=== PATIENT | male | born 1960 | race American Indian/Alaskan Native ===

== ENCOUNTER 2016-12-26 13:23 | Emergency (ER) | payer MEDICAID ==
[2016-12-26] MEDS ORDERED: NACL 0.9% 500 ML IR ONE (15:05)
[2016-12-26] MEDS ORDERED: XYLOCAINE 2%/EPI 1:100,000 INFILTRATI ONE ×2 (15:07→15:22)
[2016-12-26] MEDS ORDERED: XYLOCAINE 2% INFILTRATI ONE (15:17)
[2016-12-26] MEDS ORDERED: BOOSTRIX IM ONE (15:33)
[2016-12-26] MEDS ORDERED: NACL 0.9% 1000 ML 1,000 ML IV ONE (15:34)
[2016-12-26] MEDS ORDERED: ZOFRAN IV ONE (15:35)
[2016-12-26] MEDS ORDERED: NACL 0.9% IR ONE (15:35)
[2016-12-26] MEDS ORDERED: XYLOCAINE 1% 20 mL INFILTRATI ONE (15:35)
--- NOTE | 2016-12-26 15:35 | Emergency Department Report ---
ED General Adult HPI - General Chief complaint: Wound/Laceration Stated complaint: 3 FINGERS LAC Time Seen by Provider: 12/26/16 15:09 Source: patient, family, RN notes reviewed Mode of arrival: Ambulatory Limitations: No Limitations - History of Present Illness Initial comments: This is a 56-year-old male. He is previously unknown to me. He is right-hand dominant. Has a past medical history of HIV. Does not know his CD4 count. Does not know his viral load. The patient works with [employer]. The patient presents to the ER with 3 finger lacerations after being cut by glass. Has a right pointer finger laceration, right fourth digit, and right middle finger laceration. Lacerations were sustained prior to arrival. There is no extremity weakness or numbness. Of note, while in the waiting room, patient had a vagal event, with the following events happening as per nursing documentation: After unwrapping and rewrapping wounds to assess injuries; pt c/o feeling lightheaded and dizzy . pt became diaphoretic across forehead . repeat blood pressure 61/37. informed pt to stay seated while getting wheelchair to take him to stretcher . pt got up ; fell to floor while vomiting. Glasses fell to floor / cut right upper eyebrow area . assisted pt out of floor and into wheelchair . pt taken to room 4 via wheelchair ; accompanied by spouse Patient reports that prior to arrival to the ER, he was feeling fine. While in the waiting room, he developed nausea and vomiting. -: Sudden Location: left, right, upper extremity Quality: aching Consistency: constant Improves with: rest Worsens with: movement Associated Symptoms: malaise, nausea/vomiting, syncope, weakness - Related Data Previous Rx's Medication Instructions Recorded Last Taken Type Bacitracin/Polymixin B [Polysporin] 1 applicatio TP TID #1 tube 12/26/16 Unknown Rx Ibuprofen [Motrin] 600 mg PO Q8H PRN #30 tablet 12/26/16 Unknown Rx Ondansetron [Zofran Odt] 4 mg PO QID PRN #20 tab.rapdis 12/26/16 Unknown Rx oxyCODONE [Roxicodone] 5 mg PO Q6HR PRN #15 tablet 12/26/16 Unknown Rx Allergies Allergy/AdvReac Type Severity Reaction Status Date / Time No Known Allergies Allergy Unverified 12/26/16 13:42 ED Review of Systems ROS: Stated complaint: 3 FINGERS LAC Other details as noted in HPI Constitutional: malaise. denies: fever Eyes: denies: vision change ENT: denies: epistaxis Respiratory: denies: cough Cardiovascular: syncope. denies: chest pain Gastrointestinal: nausea Genitourinary: as per HPI Musculoskeletal: arthralgia, myalgia Skin: lesions Neurological: weakness Psychiatric: anxiety ED Past Medical Hx - Past Medical History Hx HIV: Yes - Surgical History Past Surgical History?: No - Social History Smoking Status: Current Every Day Smoker Substance Use Type: Alcohol - Medications Home Medications: Home Medications Medication Instructions Recorded Confirmed Last Taken Type Bacitracin/Polymixin B [Polysporin] 1 applicatio TP TID #1 tube 12/26/16 Unknown Rx Ibuprofen [Motrin] 600 mg PO Q8H PRN #30 tablet 12/26/16 Unknown Rx Ondansetron [Zofran Odt] 4 mg PO QID PRN #20 tab.rapdis 12/26/16 Unknown Rx oxyCODONE [Roxicodone] 5 mg PO Q6HR PRN #15 tablet 12/26/16 Unknown Rx ED Physical Exam - General Limitations: Physical Limitation General appearance: alert, in no apparent distress - Head Head exam: Present: normocephalic, other (there is a right supraorbital abrasion /laceration) - Eye Eye exam: Present: normal appearance, PERRL, EOMI. Absent: nystagmus - ENT ENT exam: Present: normal exam, normal orophraynx, mucous membranes moist, TM's normal bilaterally, normal external ear exam - Neck Neck exam: Present: normal inspection, full ROM. Absent: tenderness, meningismus - Respiratory Respiratory exam: Present: normal lung sounds bilaterally. Absent: respiratory distress, wheezes, rales, rhonchi, stridor, decreased breath sounds - Cardiovascular Cardiovascular Exam: Present: regular rate, normal rhythm, normal heart sounds. Absent: bradycardia, tachycardia, irregular rhythm, systolic murmur, diastolic murmur, rubs, gallop - GI/Abdominal GI/Abdominal exam: Present: soft, tenderness, normal bowel sounds, other (there is left lower quadrant tenderness, there is no rebound, guarding or peritoneal signs). Absent: distended, guarding, rebound, rigid, pulsatile mass - Rectal Rectal exam: Present: deferred - Extremities Exam Extremities exam: Present: full ROM, tenderness, normal capillary refill, other (on the right pointer finger, there is a laceration on the dorsal aspect over the PCP joint. In the right upper extremity, thumb opposition is intact, FDP, FDS, extensors, lumbricals, intrinsics are intact. 2+ pulses noted in the upper extremities, compartments are soft, extensors are intact, and patient has good capillary refill in 5 digits. In the left upper extremity, FDP, FDS, extensors, opposition, lumbricals are all intact. There is no tendon dysfunction noted in the upper extremities. On the medial aspect of the fourth and third digits, there is a soft tissue defect consistent with laceration.). Absent: pedal edema, joint swelling, calf tenderness - Back Exam Back exam: Present: normal inspection, full ROM. Absent: tenderness, CVA tenderness (R), CVA tenderness (L), muscle spasm, paraspinal tenderness, vertebral tenderness - Neurological Exam Neurological exam: Present: alert, oriented X3, other (Extraocular movements intact. Tongue midline. No facial droop. Facial sensation intact to light touch in the V1, V2, V3 distribution bilaterally. 5 and 5 strength in 4 extremities.. Sensation is intact to light touch in 4 extremities.). Absent: motor sensory deficit - Psychiatric Psychiatric exam: Present: normal affect, normal mood - Skin Skin exam: Present: warm, other (right-sided supraorbital ecchymosis/laceration/ abrasion. Finger abrasions and lacerations as noted) ED Course Vital Signs 12/26/16 12/26/16 12/26/16 13:46 15:00 16:04 Temperature 98.3 F Pulse Rate 95 H 96 H 90 Respiratory 19 16 16 Rate Blood Pressure 107/76 Blood Pressure 115/77 134/93 [Left] O2 Sat by Pulse 96 100 100 Oximetry - Reevaluation(s) Reevaluation #1: 12/26/16 16:35 differential diagnosis: Vagal event, orthostatics, colitis, diverticulitis,, intracranial injury, multiple finger lacerations Assessment and plan: 56-year-old male with multiple finger lacerations from a piece of glass, physical exam in terms of his neurovascular status is unremarkable, and his tendons are also intact. Plain films do not demonstrate fracture, dislocation, foreign body. He will be given a tetanus vaccination, and the physician reading assistant will repair the finger lacerations. Patient had of what sounds like a vagal event while in the waiting room. He is afebrile now with reassuring vital signs, with a GCS of 15, and an NIH score of 0. He has a right-sided supraorbital abrasion and laceration. A noncontrast CT scan of the brain is ordered to exclude intracranial injury. He is incidentally found to have left lower quadrant tenderness on his examination, he states this was not part of his initial complaint, but it is noted incidentally in any way. Laboratory studies pending, urinalysis pending, CT scan of the abdomen and pelvis pending. Reevaluation #2: 12/26/16 18:22 lacerations were repaired by physician Asst. Escobar. CT scan of the brain and abdomen negative. patient has remained hemodynamically stable while here in the emergency department. Patient ambulating with a steady gait without difficulty. No chest pain. EKG abnormal, no prior for comparison. Patient will be discharged with antibiotic ointment, pain medication, instructions to follow up primary care. Return precautions are reviewed. left lower quadrant tenderness has resolved tolerating liquid feeds 12/26/16 18:43 12/26/16 18:44 Reevaluation #3: 12/26/16 18:47 Patient is discharged accompanied by an adult, who feels comfortable to assist in caring for the patient. ED Medical Decision Making - Lab Data Result diagrams: 12/26/16 16:06 12/26/16 16:06 Vital Signs 12/26/16 12/26/16 12/26/16 13:46 15:00 16:04 Temperature 98.3 F Pulse Rate 95 H 96 H 90 Respiratory 19 16 16 Rate Blood Pressure 107/76 Blood Pressure 115/77 134/93 [Left] O2 Sat by Pulse 96 100 100 Oximetry Lab Results 12/26/16 Range/Units 16:06 WBC 5.2 (4.5-11.0) K/mm3 RBC 4.58 (3.65-5.03) M/mm3 Hgb 14.1 (11.8-15.2) gm/dl Hct 41.6 (35.5-45.6) % MCV 91 (84-94) fl MCH 31 (28-32) pg MCHC 34 (32-34) % RDW 12.1 L (13.2-15.2) % Plt Count 139 L (140-440) K/mm3 - EKG Data 12/26/16 18:43 Normal sinus, 65 bpm, left axis deviation, poor R progression, borderline left ventricular hypertrophy, not consistent with STEMI. - Radiology Data Radiology results: report reviewed, image reviewed interpreted by me: X-ray of the chest negative. Bilateral hand x-ray negative for fracture and dislocation. Soft tissue defects are noted CT scan of the brain is negative. CT scan of the abdomen and pelvis shows constipation. Incidental adenopathy is noted. Adenopathy most likely secondary to underlying HIV status. Otherwise, CT scan of the abdomen and pelvis negative Critical care attestation.: If time is entered above; I have spent that time in minutes in the direct care of this critically ill patient, excluding procedure time. ED Disposition Clinical Impression: Multiple lacerations Disposition: DISCHARGED TO HOME OR SELFCARE Is pt being admited?: No Does the pt Need Aspirin: No Condition: Stable Instructions: Suture Care (ED), Laceration (ED), Syncope (ED) Additional Instructions: Take the antibiotic ointment as directed. Take the pain medication, nausea medication as needed/directed. If taking the oxycodone for pain, do not drive, consume alcohol, or make important decisions. Have the lacerations reevaluated by a medical professional within 48-72 hours. Facial sutures should come out within 5 days. Right hand sutures should come out within 5-7 days. EKG demonstrated nonspecific abnormalities. The should be followed up by his primary care doctor or seamless tube mill operator within the next [address] Ronn Hernandez is a local primary care doctor. Dr. Mason is a local engagement specialist. Return to the ER right away with new pain, worsened pain, migration of pain, fevers or chills, intractable nausea or vomiting, inability to tolerate liquid feeds. Starting tomorrow, wash the laceration sites with gentle soap and water every 8-12 hours. Keep dry otherwise, and apply bacitracin as directed. Prescriptions: Bacitracin/Polymixin B [Polysporin] 1 applicatio TP TID #1 tube Ibuprofen [Motrin] 600 mg PO Q8H PRN #30 tablet PRN Reason: Pain Ondansetron [Zofran Odt] 4 mg PO QID PRN #20 tab.rapdis PRN Reason: Nausea oxyCODONE [Roxicodone] 5 mg PO Q6HR PRN #15 tablet PRN Reason: Pain Referrals: PRIMARY CARE,MD [Primary Care Provider] - 3-5 Days RONN HERNANDEZ MD [Staff Physician] - 3-5 Days
[2016-12-26] MEDS ORDERED: MORPHINE ONE (15:40)
[2016-12-26] MEDS ORDERED: XYLOCAINE 1%/ EPI 1:100,000 INFILTRATI NR (16:00)
--- NOTE | 2016-12-26 16:03 | XRay Report ---
Bilateral hand: History: Hand laceration. Findings: No articular abnormality or fracture or dislocation. Soft tissue laceration is noted distal phalanx fourth finger left hand. No periosteal reaction or lytic lesion. Impression: No acute fracture or periosteal reaction.
--- NOTE | 2016-12-26 16:04 | XRay Report ---
Single view chest: History: Syncope. Findings: Normal cardiomediastinal silhouette. Trachea is midline. No consolidation, pneumothorax or pleural effusion. Impression: No acute cardiopulmonary findings.
[2016-12-26] MEDS ORDERED: MORPHINE IV ONE (16:12)
[2016-12-26 16:23] LABS: Hematocrit 41.6 % (35.5-45.6); Hemoglobin 14.1 gm/dl (11.8-15.2); Mean Corpuscular HGB Conc 34 % (32-34); Mean Corpuscular Hemoglobin 31 pg (28-32); Mean Corpuscular Volume 91 fl (84-94); Platelet Count 139 K/mm3 (140-440); Red Blood Count 4.58 M/mm3 (3.65-5.03); Red Cell Distribution Width 12.1 % (13.2-15.2); White Blood Count 5.2 K/mm3 (4.5-11.0)
--- NOTE | 2016-12-26 16:32 | Cat Scan Report ---
CT scan of head without contrast: History: Dizziness. Findings: Ventricles are normal in size and midline in location. No evidence of acute ischemia, hemorrhage or mass. No extra-axial fluid collection. Normal brainstem and cerebellum. Normal sinuses and mastoid air cells. Impression: No acute intracranial abnormality.
[2016-12-26 16:37] LABS: BUN/Creatinine Ratio 13.84; Blood Urea Nitrogen 18 mg/dL (9-20); Calcium 9.2 mg/dL (8.4-10.2); Carbon Dioxide 22 mmol/L (22-30); Chloride 99.1 mmol/L (98-107); Glucose 88 mg/dL (75-100); Magnesium 1.9 mg/dL (1.7-2.3); Sodium 134 mmol/L (137-145)
[2016-12-26 16:39] LABS: Alanine Aminotransferase 54 units/L (7-56); Albumin 3.9 g/dL (3.9-5); Alkaline Phosphatase 87 units/L (35-129); Anion Gap 18 mmol/L; Bilirubin,Total 0.9 mg/dL (0.1-1.2); Lipase 36 units/L (13-60); Potassium 4.8 mmol/L (3.6-5.0); Total Protein 7.9 g/dL (6.3-8.2)
--- NOTE | 2016-12-26 16:41 | Cat Scan Report ---
CT scan of abdomen and pelvis without IV contrast: History: Left lower quadrant pain nausea and vomiting. Findings: The right lung cyst/bronchiectasis. No pleural or pericardial effusion. Normal liver and pancreas. Patient status post cholecystectomy. Calcified granuloma spleen. Normal adrenals and kidney parenchyma and bladder. No free intraperitoneal fluid or air. Atherosclerotic calcified abdominal aorta without aneurysm. Small mesenteric and periaortic lymph nodes are noted. Lymph nodes are also identified in the pelvis. Normal appendix. No evidence of diverticulitis. Gaseous colon with moderate volume stool in colon. Impression: Mesenteric, retroperitoneal and pelvic nodes. Calcified granuloma spleen.
[2016-12-26 16:43] LABS: Bilirubin,Direct < 0.2 mg/dL (0-0.2); Bilirubin,Indirect 0.7 mg/dL
[2016-12-26] MEDS ORDERED: TORADOL IV ONE (17:10)
[2016-12-26 17:11] LABS: Bilirubin,Urine NEG (Negative); Blood,Urine NEG (Negative); Ketones,Urine NEG (Negative); Leukocyte Esterase,Urine NEG (Negative); Nitrite,Urine NEG (Negative); Protein,Urine <15 mg/dL mg/dL (Negative); RBC,Urine < 1.0 /HPF (0.0-6.0); WBC,Urine < 1.0 /HPF (0.0-6.0)
[2016-12-26] MEDS ORDERED: BACITRACIN (ED) OINT PACKET TP ONE (18:21)
--- NOTE | 2016-12-26 18:21 | Emergency Department Report ---
Blank Doc - Documentation Documentation: Procedure note: Multiple lacerations to face and left 3rd and 4th fingertips Attending: Dr. Tan Patient syncopized in triage, hit head on ground, sustained laceration of right brow. Patient lacerated left distal middle and ring finger now handling broken glass at home/work. Areas of lacerations infiltrated with 1% lidocaine, epinephrine used in right brow lack. No epinephrine used and finger lacerations only lidocaine. Total volume of anesthesia approximately 8 mL. All areas anesthetized until good local anesthesia was achieved. Hand and fingers cleaned with 1000 mL of saline mixed with iodoform in [place] solution for 5 minutes. I cleaned right upper brow with saline gauze and saline flushes and iodoform sponge. 2 Prolene 4-0 sutures placed in right brow region. Tolerated well with minimal bleeding. Triple antibiotic ointment and Band-Aid placed over area after sutures placed. 3 Prolene 4-0 sutures placed in left distal middle finger on lateral aspect of distal finger past the distal interphalangeal joint. Good capillary refill in this distal finger area less than one second. Good distal sensation clinical exam. Range of motion of motion DIP and PIP and MCP fully intact against resistance with flexion and extension intact. 9 Prolene 4-0 suture placed in large stellate near nearly fully avulsed skin on distal left ring fingertip. close approximation acheived with suture placement. Distal capillary refill less than 1 second in his fingertip. Good distal sensation clinical exam. Range of motion of motion DIP and PIP and MCP fully intact against resistance with flexion and extension intact. Total of 14 sutures placed. Overall procedure tolerated well minimal bleeding. Fingertips covered with triple antibiotic ointment small amount of Roll-on gauze and finger splints placed by nurse. Facial sutures to be removed in 7 days. Fingertips sutures will require at least 7-[address] Tan notified of completion of laceration repair.
[2016-12-26 18:54] VITALS: BP 129/69
[2016-12-26] MEDS ORDERED: ANTIBIOTIC OINT TP ONE (19:00)
== END 2016-12-26 19:21 | disposition home or self-care (01) ==
LOC: ED 13:23
DX: S01.111A Laceration without foreign body of right eyelid and periocular area, initial encounter (principal); S61.214A Laceration without foreign body of right ring finger without damage to nail, initial encounter; S61.212A Laceration without foreign body of right middle finger without damage to nail, initial encounter; F17.200 Nicotine dependence, unspecified, uncomplicated; W25.XXXA Contact with sharp glass, initial encounter; Y93.89 Activity, other specified; Y99.9 Unspecified external cause status; Y92.89 Other specified places as the place of occurrence of the external cause
CPT/HCPCS: 12002; 12011; 36415; 70450; 71010; 73120; 74176; 80048; 80074; 81001; 83690; 83735; 85027; 90471; 90715; 93005; 93010; 96361; 96374; 96375; 99285; J1885; J2270; J2405; J7030

== ENCOUNTER 2017-01-01 09:29 | Emergency (ER) | payer MEDICAID ==
[2017-01-01 09:36] VITALS: BP 118/78
--- NOTE | 2017-01-01 10:11 | Emergency Department Report ---
ED Recheck HPI - General Chief Complaint: Laceration/Recheck/Suture Stated Complaint: SUTURE REMOVAL Time Seen by Provider: 01/01/17 10:05 Source: patient Mode of arrival: Ambulatory Limitations: No Limitations - History of Present Illness Initial Comments: Patient had stitches placed to fingers of left finger placed on 12/26/2016. He also had stitches to his left eyebrow. She was placed on ibuprofen and bacitracin along with oxycodone and Zofran. He denies any redness, drainage or fever. He said he still has pain with movement of his finger 4-10 and medication is working for him. She has HIV status he wasn't placed on any oral aantibiotic but was given prescription bacitracin which he said he's been applying to areas n post laceration repair. Patient said that he is not on any HIV medication and his viral load was undetectable. Complaint: wound re-check Onset/Timin -: days(s) Initial Visit For: laceration Returns Today for: staple/Stitch removal, wound recheck Symptoms Since Prior Visit: no new symptoms, improved Context: planned re-check Associated Symptoms: none. denies: fever, chills, chest pain, shortness of breath, rash, malaise, nasuea, abdominal pain Treatments Prior to Arrival: other medications (nausea medication), Given Pain Meds on - Related Data Previous Rx's Medication Instructions Recorded Last Taken Type Bacitracin/Polymixin B [Polysporin] 1 applicatio TP TID #1 tube 12/26/16 Unknown Rx Ibuprofen [Motrin] 600 mg PO Q8H PRN #30 tablet 12/26/16 Unknown Rx Ondansetron [Zofran Odt] 4 mg PO QID PRN #20 tab.rapdis 12/26/16 Unknown Rx oxyCODONE [Roxicodone] 5 mg PO Q6HR PRN #15 tablet 12/26/16 Unknown Rx Allergies Allergy/AdvReac Type Severity Reaction Status Date / Time No Known Allergies Allergy Unverified 12/26/16 13:42 ED Review of Systems ROS: Stated complaint: SUTURE REMOVAL Other details as noted in HPI Comment: All other systems reviewed and negative Constitutional: denies: chills, fever Respiratory: no symptoms reported Cardiovascular: denies: chest pain, palpitations, edema, syncope Gastrointestinal: denies: abdominal pain, nausea, vomiting Skin: other (laceration to finger is on the left hand third and fourth digits at the distal phalanx. Laceration to left brow) Neurological: denies: headache, numbness, paresthesias, confusion ED Past Medical Hx - Past Medical History Previous Medical History?: Yes Hx Hypertension: Yes Hx HIV: Yes - Surgical History Past Surgical History?: No - Family History Family history: no significant - Social History Smoking Status: Current Every Day Smoker Substance Use Type: Alcohol, Prescribed - Medications Home Medications: Home Medications Medication Instructions Recorded Confirmed Last Taken Type Bacitracin/Polymixin B [Polysporin] 1 applicatio TP TID #1 tube 12/26/16 Unknown Rx Ibuprofen [Motrin] 600 mg PO Q8H PRN #30 tablet 12/26/16 Unknown Rx Ondansetron [Zofran Odt] 4 mg PO QID PRN #20 tab.rapdis 12/26/16 Unknown Rx oxyCODONE [Roxicodone] 5 mg PO Q6HR PRN #15 tablet 12/26/16 Unknown Rx ED Physical Exam - General Limitations: No Limitations General appearance: alert, in no apparent distress - Head Head exam: Present: atraumatic, normocephalic, normal inspection - Eye Eye exam: Present: normal appearance, PERRL, EOMI Pupils: Present: normal accommodation - ENT ENT exam: Present: normal exam, mucous membranes moist - Neck Neck exam: Present: normal inspection. Absent: tenderness, lymphadenopathy - Respiratory Respiratory exam: Present: normal lung sounds bilaterally. Absent: respiratory distress, chest wall tenderness - Cardiovascular Cardiovascular Exam: Present: regular rate, normal rhythm, normal heart sounds - Extremities Exam Extremities exam: Present: normal inspection, full ROM, tenderness (tender to palpate to left distal phalanx third and fourth finger), normal capillary refill , other (capillary refill less than 3 seconds. Left hand without any pain or swelling. Left hand without any redness and pulses are 2+. Signs of neurovascular compromise. Patient with full range of motion to all fingers of left hand). Absent: pedal edema, joint swelling, calf tenderness - Back Exam Back exam: Present: normal inspection, full ROM - Neurological Exam Neurological exam: Present: alert, oriented X3, normal gait, reflexes normal. Absent: motor sensory deficit - Psychiatric Psychiatric exam: Present: normal affect, normal mood - Skin Skin exam: Present: warm, dry, intact. Absent: erythema - Expanded Skin Exam Expanded Type of lesion: Present: laceration (with stitches. To left third and fourth digits and left eyebrow) ED Course Vital Signs 01/01/17 09:33 Temperature 97.7 F Pulse Rate 80 Respiratory 18 Rate Blood Pressure 118/78 O2 Sat by Pulse 99 Oximetry - Reevaluation(s) Reevaluation #1: 01/01/17 10:17 Stitches removed from left third and fourth distal phalanx and left eyebrow. Patient tolerated it well. 3 sutures removed from distal phalanx left third finger and 5 removed from distal phalanx left fourth finger of left hand. 2 sutures removed from left eyebrow. Laceration site looks good and no signs of infection. ED Recheck MDM - Differential Diagnosis Wound Recheck, Suture/Staple Removal - Medical Decision Making ED course:Stitches removed from left third and fourth distal phalanx and left eyebrow. Patient tolerated it well. 3 sutures removed from distal phalanx left third finger and 5 removed from distal phalanx left fourth finger of left hand. 2 sutures removed from left eyebrow. Laceration site looks good and no signs of infection. Patient instructed to return to the emergency room or his primary care physician if he develop redness, swelling or drainage inside. He voiced understanding of diagnosis and treatment plan and discharged home to continue with bacitracin ointment. Critical care attestation.: If time is entered above; I have spent that time in minutes in the direct care of this critically ill patient, excluding procedure time. ED Disposition Clinical Impression: Visit for suture removal Disposition: DISCHARGED TO HOME OR SELFCARE Is pt being admited?: No Does the pt Need Aspirin: No Condition: Stable Instructions: Laceration (ED), Suture Removal (ED) Additional Instructions: keep affected area clean and dry Primary care physician in 2-3 days. Referrals: PRIMARY CARE,MD [Primary Care Provider] - 2-3 Days
== END 2017-01-01 10:31 | disposition home or self-care (01) ==
LOC: ED 09:29
DX: Z48.02 Encounter for removal of sutures (principal); I10 Essential (primary) hypertension; F17.200 Nicotine dependence, unspecified, uncomplicated

== ENCOUNTER 2017-03-20 17:05 | Emergency (ER) | payer MEDICAID ==
[2017-03-20 17:23] VITALS: BP 141/96
[2017-03-20] MEDS ORDERED: XYLOCAINE 1% 20 mL INFILTRATI ONE (17:40)
--- NOTE | 2017-03-20 18:36 | Emergency Department Report ---
Upper Extremity - [facility] Chief Complaint: Extremity Injury, Upper Stated Complaint: LAC TO FINGER Time Seen by Provider: 03/20/17 17:36 Upper Extremity: Left Middle Finger Occurred When: Today Symptoms: Yes Pain with Movement, Yes Limited Range of Movement, Yes Swelling, Yes Laceration or Abrasion, No Deformity, No Numbness, No Weakness Other History: Patient comes into the ER today with complaints of a finger laceration after he states that he was working on a window when the glass fell down and cut his finger. Patient states that he done a similar injury a couple months ago and was seen here and he thinks he got a tetanus shot at that time. Patient also having complaints of chronic cough and throat discomfort for the past 2-3 months. Patient states that he saw his doctor and was told that it may be allergies and was given Claritin without any relief in his cough. Patient denies any fever, hemoptysis, night sweats. ED Review of Systems ROS: Stated complaint: LAC TO FINGER Other details as noted in HPI Constitutional: denies: chills, fever Eyes: denies: eye pain, eye discharge, vision change ENT: throat pain, congestion. denies: ear pain Respiratory: cough. denies: shortness of breath, wheezing Cardiovascular: denies: chest pain, palpitations Endocrine: no symptoms reported Gastrointestinal: denies: abdominal pain, nausea, diarrhea Genitourinary: denies: urgency, dysuria Musculoskeletal: denies: back pain, joint swelling, arthralgia Skin: denies: rash, lesions Neurological: denies: headache, weakness, numbness, paresthesias Psychiatric: denies: anxiety, depression Hematological/Lymphatic: denies: easy bleeding, easy bruising ED Past Medical Hx - Past Medical History Previous Medical History?: Yes Hx Hypertension: Yes Hx HIV: Yes - Surgical History Past Surgical History?: No - Social History Smoking Status: Current Every Day Smoker Substance Use Type: Alcohol, Marijuana, Prescribed - Medications Home Medications: Home Medications Medication Instructions Recorded Confirmed Last Taken Type Bacitracin/Polymixin B [Polysporin] 1 applicatio TP TID #1 tube 12/26/16 Unknown Rx Ibuprofen [Motrin] 600 mg PO Q8H PRN #30 tablet 12/26/16 Unknown Rx Ondansetron [Zofran Odt] 4 mg PO QID PRN #20 tab.rapdis 12/26/16 Unknown Rx oxyCODONE [Roxicodone] 5 mg PO Q6HR PRN #15 tablet 12/26/16 Unknown Rx Amoxicillin/K Clav Tab [Augmentin 1 tab PO Q12HR #20 tab 03/20/17 Unknown Rx 875 mg] Upper Extremity Exam - Exam General: Vital signs noted. No distress. Alert and acting appropriately. Head and Torso: Yes HEENT Abnormality (bilateral nasal mucosa redness and turbinate swelling, posterior pharynx erythematous and postnasal drainage noted. ), No Neck Tenderness, No Chest/Lungs Abnormality, No Abdominal Tenderness, No Back Tenderness Shoulder Exam: Yes Normal Range of Motion in Shoulder, No Shoulder Tenderness, No Clavicle Tenderness, No Shoulder Deformity, No AC Joint Tenderness Arm Exam: No Arm/Humerus Tenderness, No Arm Deformity Elbow: No Elbow Tenderness, No Normal Range of Motion in Elbow, No Elbow Deformity Forearm: No Forearm Tenderness, No Forearm Deformity, No Pain with Pronation, No Pain with Supination Wrist: Yes Normal ROM in Wrist, No Wrist Tenderness, No Wrist Deformity, No Snuffbox Tenderness, No Pain with Axial Thumb Compression Hand: Yes Digit Tenderness (left third posterior finger), Yes Normal ROM in Digit(s), Yes Digit(s) Deformity (laceration noted to left posterior third finger at PIP joint. Laceration is subcutaneous in curvilinear curve fashion. Laceration does appear to involve partial injury to the flexor tendon. No foreign bodies noted.), No Hand Tenderness, No Hand Deformity, No Tendon Dysfunction CMS Exam: Yes Broken Skin (laceration to left third posterior finger at PIP joint as described above under hand examination.), Yes Normal Distal Pulses, Yes Normal Capillary Refill, Yes Normal Distal Sensation ED Course Vital Signs 03/20/17 17:20 Temperature 98.6 F Pulse Rate 100 H Respiratory 16 Rate Blood Pressure 141/96 O2 Sat by Pulse 96 Oximetry - Laceration /Wound Repair Left Posterior Finger Wound Location: upper extremity (left posterior third PIP joint of the left hand ) Wound Length (cm): 3 Wound's Depth, Shape: linear, flap Wound Explored: clean Irrigated w/ Saline (ccs): 45 Betadine Prep?: Yes Anesthesia: 1% Lidocaine Volume Anesthetic (ccs): 3 Wound Repaired With: sutures Suture Size/Type: 3:0, nylon Number of Sutures: 7 Layer Closure?: No Sterile Dressing Applied?: Yes Progress: Patient tolerated procedure very well without any complications. After wound closure, patient dressed in sterile dressing and placed in aluminum foam finger splint to limit range of motion. I will refer patient to orthopedic for further evaluation of hand injury since it appears that there is some tendon involvement as well. ED Medical Decision Making - Medical Decision Making Patient is nontoxic and hemodynamically stable. I informed patient that since there is tendon involvement that I will refer him to orthopedic for further evaluation. Patient's tetanus was updated on his last visit for sutures. Patient does have additional physical exam consistent with sinus infection. Since patient has had postnasal drainage and cough for 3 months, and patient is HIV patient, I'll start patient on antibiotics accordingly for such. I will also refer patient to ENT for further evaluation of his chronic cough. Patient is in agreement with treatment plan and patient is stable for discharge. Critical care attestation.: If time is entered above; I have spent that time in minutes in the direct care of this critically ill patient, excluding procedure time. ED Disposition Clinical Impression: Laceration of finger of left hand, Chronic cough, Sinusitis Disposition: DC-01 TO HOME OR SELFCARE Is pt being admited?: No Does the pt Need Aspirin: No Condition: Good Instructions: Finger Laceration (ED), Sinusitis (ED) Prescriptions: Amoxicillin/K Clav Tab [Augmentin 875 mg] 1 tab PO Q12HR #20 tab Referrals: PRIMARY CAREMD [Primary Care Provider] - 3-5 Days MADHU AGOSTO MD [Staff Physician] - 3-5 Days [facility] [Provider Group] - 3-5 Days [facility], emergency Department [Other] - 04/03/17 (For suture removal) Time of Disposition: 18:57
== END 2017-03-20 19:02 | disposition home or self-care (01) ==
LOC: ED 17:05
DX: S61.213A Laceration without foreign body of left middle finger without damage to nail, initial encounter (principal); J32.9 Chronic sinusitis, unspecified; I10 Essential (primary) hypertension; F17.210 Nicotine dependence, cigarettes, uncomplicated; F12.10 Cannabis abuse, uncomplicated; W25.XXXA Contact with sharp glass, initial encounter; Y93.89 Activity, other specified; Y92.89 Other specified places as the place of occurrence of the external cause; Y99.8 Other external cause status
CPT/HCPCS: 99282

== ENCOUNTER 2017-04-03 11:00 | Emergency (ER) | payer MEDICAID ==
[2017-04-03 11:31] VITALS: BP 111/83
--- NOTE | 2017-04-03 11:40 | Emergency Department Report ---
Chief Complaint: Laceration/Recheck/Suture Stated Complaint: STITCHES REMOVED Time Seen by Provider: 04/03/17 11:38 - HPI History of Present Illness: he is HIV positive patient on medication presents for suture removal Patient also complains of what, productive cough for the past 2 months. He denies fevers/chills/nausea/vomiting/shortness of breath/chest pain or any other problems. - ROS Review of Systems: As noted in HPI - Exam Vital Signs: Vital Signs 04/03/17 11:27 Temperature 98.1 F Pulse Rate 76 Respiratory 20 Rate Blood Pressure 111/83 O2 Sat by Pulse 98 Oximetry Physical Exam: General: Patient is alert and oriented 3 he is in no acute distress Lungs: No wheezing, adventitious lung sounds bilaterally. Skin: Five t- 6 stitches to left third digit finger MSE screening note: Focused history and physical exam performed. Due to findings the following was ordered: ED Medical Decision Making - Medical Decision Making Chest x-ray ordered. Patient will need Bactrim antibiotics for prophylaxis prior to discharge. ED Disposition for MSE Condition: Stable
--- NOTE | 2017-04-03 12:34 | Emergency Department Report ---
Suture/Staple Removal - [facility] Chief Complaint: Laceration/Recheck/Suture Stated Complaint: STITCHES REMOVED Time Seen by Provider: 04/03/17 11:38 When Sutures or Caspian Placed: 8-10 Days Ago Wound Location: third digit finger ED Review of Systems ROS: Stated complaint: STITCHES REMOVED Other details as noted in HPI Constitutional: denies: chills, fever Eyes: denies: eye pain, eye discharge, vision change ENT: denies: ear pain, throat pain Respiratory: denies: cough, shortness of breath, wheezing Cardiovascular: denies: chest pain, palpitations Endocrine: no symptoms reported Gastrointestinal: denies: abdominal pain, nausea, diarrhea Genitourinary: denies: urgency, dysuria Musculoskeletal: denies: back pain, joint swelling, arthralgia Skin: denies: rash, lesions Neurological: denies: headache, weakness, paresthesias Psychiatric: denies: anxiety, depression Hematological/Lymphatic: denies: easy bleeding, easy bruising ED Past Medical Hx - Past Medical History Previous Medical History?: Yes Hx Hypertension: Yes Hx HIV: Yes - Surgical History Past Surgical History?: No - Social History Smoking Status: Unknown if ever smoked - Medications Home Medications: Home Medications Medication Instructions Recorded Confirmed Last Taken Type Bacitracin/Polymixin B [Polysporin] 1 applicatio TP TID #1 tube 12/26/16 Unknown Rx Ondansetron [Zofran Odt] 4 mg PO QID PRN #20 tab.rapdis 12/26/16 Unknown Rx oxyCODONE [Roxicodone] 5 mg PO Q6HR PRN #15 tablet 12/26/16 Unknown Rx Amoxicillin/K Clav Tab [Augmentin 1 tab PO Q12HR #20 tab 03/20/17 Unknown Rx 875 mg] Benzonatate [Tessalon Perles] 100 mg PO Q8HR #20 capsule 04/03/17 Unknown Rx Ibuprofen [Motrin 600 MG tab] 600 mg PO Q8H PRN #30 tablet 04/03/17 Unknown Rx Sulfamethoxazole/Trimethoprim 1 each PO BID #20 tablet 04/03/17 Unknown Rx [Bactrim DS TAB] Suture Removal Exam - Exam General: Vital signs noted. No distress. Alert and acting appropriately. Wound: No Pathologic Erythema, No Tenderness, No Drainage, No Pus, No Wound Dehiscence Other Systems: All other systems reviewed and are unremarkable. ED Course Vital Signs 04/03/17 11:27 Temperature 98.1 F Pulse Rate 76 Respiratory 20 Rate Blood Pressure 111/83 O2 Sat by Pulse 98 Oximetry ED Recheck MDM - Medical Decision Making 56-year-old male presents for suture removal and upper respiratory infection ED course: Discussed the patient to follow up with primary care physician. 7 stitches removed from the left third digit anterior finger. No complications patient tolerated procedure well Discussed his symptoms persist or worsen to return to ED. Vital signs are normal patient is no acute distress. Patient is oriented 3 understands instructions given. Critical care attestation.: If time is entered above; I have spent that time in minutes in the direct care of this critically ill patient, excluding procedure time. ED Disposition Clinical Impression: Visit for suture removal URI (upper respiratory infection) Qualifiers: URI type: unspecified URI Qualified Code(s): J06.9 - Acute upper respiratory infection, unspecified Disposition: DC- TO HOME OR SELFCARE Is pt being admited?: No Does the pt Need Aspirin: No Condition: Stable Instructions: Acute Wound Care (ED), Upper Respiratory Infection (ED) Additional Instructions: Follow-up with her primary care physician. Prescriptions: Benzonatate [Tessalon Perles] 100 mg PO Q8HR #20 capsule Ibuprofen [Motrin 600 MG tab] 600 mg PO Q8H PRN #30 tablet PRN Reason: Pain Sulfamethoxazole/Trimethoprim [Bactrim DS TAB] 1 each PO BID #20 tablet Referrals: MATTHEW DOBBS MD [Referring] - 3-[address] [facility] [Outside] - 3-5 Days [facility] [Outside] - 3-5 Days Forms: Work/School Release Form(ED) Time of Disposition: 12:29
== END 2017-04-03 12:35 | disposition home or self-care (01) ==
LOC: ED 11:00
DX: J06.9 Acute upper respiratory infection, unspecified (principal); S61.213D Laceration without foreign body of left middle finger without damage to nail, subsequent encounter; I10 Essential (primary) hypertension; W45.8XXD Other foreign body or object entering through skin, subsequent encounter
CPT/HCPCS: 99282

== ENCOUNTER 2017-04-11 11:36 | Emergency (ER) | payer MEDICAID ==
[2017-04-11 12:55] LABS: Eosinophils % (Auto) 1.4 % (0.0-4.3); Hematocrit 41.1 % (35.5-45.6); Hemoglobin 14.4 gm/dl (11.8-15.2); Mean Corpuscular HGB Conc 35 % (32-34); Mean Corpuscular Hemoglobin 33 pg (28-32); Mean Corpuscular Volume 95 fl (84-94); Platelet Count 228 K/mm3 (140-440); Red Blood Count 4.32 M/mm3 (3.65-5.03); Red Cell Distribution Width 12.8 % (13.2-15.2); White Blood Count 5.7 K/mm3 (4.5-11.0)
--- NOTE | 2017-04-11 13:28 | XRay Report ---
ROUTINE CHEST, TWO VIEWS: HISTORY: Shortness of breath. The trachea, heart, mediastinal contour, lung block and bony thorax are unremarkable. IMPRESSION: Unremarkable chest x-ray.
[2017-04-11 13:38] LABS: Anion Gap 20 mmol/L; BUN/Creatinine Ratio 15.83; Blood Urea Nitrogen 19 mg/dL (9-20); Calcium 9.6 mg/dL (8.4-10.2); Carbon Dioxide 21 mmol/L (22-30); Chloride 102.1 mmol/L (98-107); Glucose 110 mg/dL (75-100); Potassium 4.4 mmol/L (3.6-5.0); Sodium 139 mmol/L (137-145)
[2017-04-11 18:26] VITALS: BP 122/98
--- NOTE | 2017-04-11 19:29 | Emergency Department Report ---
HPI - General Chief Complaint: Upper Respiratory Infection Time Seen by Provider: 04/11/17 19:17 - HPI HPI: She here report that he has cough and wheezing for 3 months. He was here in 07/2017 and was given Tessalon Perles and Bactrim DS. He was also here on 03/20 and was given Augmentin. Patient's reported hoarseness, drainage in the back of his throat, cough and it's worse at night. Denies any fever or chills. Denies coughing up blood. Denies night sweats. Patient states that he has a history of HIV and he's been followed by HIV doctor he's been positive for 34 years and his lab values were normal. Denies any shortness of breath or chest pain. Denies any drooling in. He reports he is having sore throat from coughing. Pain is 10 out of 10 to throat and feel achy. He said he is tried ibuprofen and Tessalon Perles but it's not helping. Patient also report wheezing. ED Past Medical Hx - Past Medical History Previous Medical History?: Yes Hx Hypertension: Yes Hx HIV: Yes - Surgical History Past Surgical History?: No - Family History Family history: hypertension - Social History Smoking Status: Former Smoker Substance Use Type: Alcohol, Non Opiate Pain, Prescribed, Other - Medications Home Medications: Home Medications Medication Instructions Recorded Confirmed Last Taken Type Bacitracin/Polymixin B [Polysporin] 1 applicatio TP TID #1 tube 12/26/16 Unknown Rx Ondansetron [Zofran Odt] 4 mg PO QID PRN #20 tab.rapdis 12/26/16 Unknown Rx oxyCODONE [Roxicodone] 5 mg PO Q6HR PRN #15 tablet 12/26/16 Unknown Rx Amoxicillin/K Clav Tab [Augmentin 1 tab PO Q12HR #20 tab 03/20/17 Unknown Rx 875 mg] Benzonatate [Tessalon Perles] 100 mg PO Q8HR #20 capsule 04/03/17 Unknown Rx Ibuprofen [Motrin 600 MG tab] 600 mg PO Q8H PRN #30 tablet 04/03/17 Unknown Rx Sulfamethoxazole/Trimethoprim 1 each PO BID #20 tablet 04/03/17 Unknown Rx [Bactrim DS TAB] Albuterol Sulfate [Ventolin HFA] 2 puff IH Q4H PRN #1 hfa.aer.ad 04/11/17 Unknown Rx Azithromycin [Zithromax TAB] 500 mg PO QDAY #3 tablet 04/11/17 Unknown Rx Cetirizine HCl [ZyrTEC] 10 mg PO QDAY #14 capsule 04/11/17 Unknown Rx Fluticasone [Flonase] 1 spray NS QDAY #1 bottle 04/11/17 Unknown Rx guaiFENesin/CODEINE [Robitussin AC] 5 ml PO Q8H PRN #75 oral.liqd 04/11/17 Unknown Rx ED Review of Systems ROS: Stated complaint: WHEEZING/COUGHING UP PHLEGM/BLOOD Other details as noted in HPI Comment: All other systems reviewed and negative Constitutional: denies: chills, fever ENT: throat pain, congestion. denies: ear pain Respiratory: cough, wheezing. denies: orthopnea, shortness of breath, SOB with exertion, SOB at rest, stridor Cardiovascular: denies: chest pain, palpitations, edema, syncope Gastrointestinal: denies: abdominal pain, nausea, vomiting Musculoskeletal: denies: back pain, joint swelling, arthralgia, myalgia Neurological: denies: headache, weakness, numbness, paresthesias, confusion, abnormal gait, vertigo Physical Exam - Physical Exam Vital Signs: Vital Signs 04/11/17 04/11/17 12:16 18:25 Temperature 98.1 F 97.7 F Pulse Rate 81 74 Respiratory 20 18 Rate Blood Pressure 114/82 122/98 O2 Sat by Pulse 99 99 Oximetry General: This is a 56-year-old male well-nourished well-developed in no acute distress. Physical Exam: Head: Normocephalic atraumatic Ears:BIateral TM congested without erythema. Bilateral EAC without any redness swelling or drainage. Neck: Full, full range of motion. No tracheal deviation. No C-spine tenderness. No adenopathy Nose: Bilateral nasal mucosa congested with clear drainage. Maxillary and frontal sinuses nontender to palpate. Eyes: Sclerae/ conjunctiva without injection. Bilateral pupils equal and reactive to light. Bilateral lids arenormal. Normal accommodation. Lungs: Clear to auscultate bilaterally, no rhonchi wheezes or rales. Normal work of breathing and no chest wall tenderness. Dry cough CV: S1, S2. Regular rate and rhythm negative murmur. Capillary refill is less than 3 seconds Skin: Clean dry and intact, no rashes or lesions Psych: Normal mood and behavior ED Course Vital Signs 04/11/17 04/11/17 12:16 18:25 Temperature 98.1 F 97.7 F Pulse Rate 81 74 Respiratory 20 18 Rate Blood Pressure 114/82 122/98 O2 Sat by Pulse 99 99 Oximetry - Reevaluation(s) Reevaluation #1: 04/11/17 19:29 Patient stable throughout ED course. ED Medical Decision Making - Lab Data Result diagrams: 04/11/17 12:24 04/11/17 12:24 Lab Results 04/11/17 04/11/17 Range/Units 12:24 12:24 WBC 5.7 (4.5-11.0) K/mm3 RBC 4.32 (3.65-5.03) M/mm3 Hgb 14.4 (11.8-15.2) gm/dl Hct 41.1 (35.5-45.6) % MCV 95 H (84-94) fl MCH 33 H (28-32) pg MCHC 35 H (32-34) % RDW 12.8 L (13.2-15.2) % Plt Count 228 (140-440) K/mm3 Lymph % (Auto) 25.9 (13.4-35.0) % Beadle % (Auto) 7.4 H (0.0-7.3) % Eos % (Auto) 1.4 (0.0-4.3) % Baso % (Auto) 1.0 (0.0-1.8) % Lymph # 1.5 (1.2-5.4) K/mm3 Beadle # 0.4 (0.0-0.8) K/mm3 Eos # 0.1 (0.0-0.4) K/mm3 Baso # 0.1 (0.0-0.1) K/mm3 Seg Neutrophils % 64.3 (40.0-70.0) % Seg Neutrophils # 3.7 (1.8-7.7) K/mm3 Sodium 139 (137-145) mmol/L Potassium 4.4 (3.6-5.0) mmol/L Chloride 102.1 (98-107) mmol/L Carbon Dioxide 21 L (22-30) mmol/L Anion Gap 20 mmol/L BUN 19 (9-20) mg/dL Creatinine 1.2 (0.8-1.5) mg/dL Estimated GFR > 60 ml/min BUN/Creatinine Ratio 15.83 % Glucose 110 H (75-100) mg/dL Calcium 9.6 (8.4-10.2) mg/dL - Radiology Data Radiology results: report reviewed Chest x-ray revealed no acute cardiopulmonary processes - Medical Decision Making ED course: Pt here report that he's been having cough for 3 months and easily treated with antibiotic and Tessalon Perles without any relief. He states that his cough is worse at night. Patient physical findings for upper respiratory tract infection with cough. She has a history of HIV infection for 34 years and has been followed by HIV specialist. He has no fever and his lung sounds are clear. I discussed with patient that he will be treated with Zyrtec, Flonase, Tri-Darin and guaifenesin with codeine. I discussed the patient that he needs to follow-up with his HIV specialist for follow-up chronic cough. Critical care attestation.: If time is entered above; I have spent that time in minutes in the direct care of this critically ill patient, excluding procedure time. ED Disposition Clinical Impression: Cough, Recurrent upper respiratory tract infection Disposition: DC-01 TO HOME OR SELFCARE Is pt being admited?: No Does the pt Need Aspirin: No Condition: Stable Instructions: Acute Cough (ED), Upper Respiratory Infection (ED) Additional Instructions: Please follow up with primary care as recommended Increase fluid intake Take medication as prescribed . Please follow-up E HIV specialist for chronic cough Take cough medicine and antibiotic as prescribed Prescriptions: Albuterol Sulfate [Ventolin HFA] 2 puff IH Q4H PRN #1 hfa.aer.ad PRN Reason: Cough Azithromycin [Zithromax TAB] 500 mg PO QDAY #3 tablet Cetirizine HCl [ZyrTEC] 10 mg PO QDAY #14 capsule Fluticasone [Flonase] 1 spray NS QDAY #1 bottle guaiFENesin/CODEINE [Robitussin AC] 5 ml PO Q8H PRN #75 oral.liqd PRN Reason: Cough Referrals: PRIMARY CAREMD [Primary Care Provider] - 04/13/17 Forms: Work/School Release Form(ED)
== END 2017-04-11 19:39 | disposition home or self-care (01) ==
LOC: ED 11:36
DX: J06.9 Acute upper respiratory infection, unspecified (principal); I10 Essential (primary) hypertension; Z87.891 Personal history of nicotine dependence
CPT/HCPCS: 36415; 71020; 80048; 85025; 99284